=== PATIENT | female | born 1995 | race Caucasian/White ===

== ENCOUNTER 2018-11-06 12:41 | Emergency (ER) | payer OTHER ==
[2018-11-06] MEDS ORDERED: PROPARACAINE 0.5% OPHTH DROPS 15 ML BTL BOTH EYES STA (13:36)
[2018-11-06] MEDS ORDERED: PROPARACAINE 0.5% OPHTH DROPS 15 ML BTL RIGHT EYE STA (13:36)
[2018-11-06] MEDS ORDERED: ATROPINE OPHTH SOLN 1% 5ML BTL RIGHT EYE STA (13:53)
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
[2018-11-06] MEDS ORDERED: SODIUM CHLORIDE 0.9% 1,000 ML IV ONE (14:22)
[2018-11-06] MEDS ORDERED: LEVOFLOXACIN 750MG-D5W PMX 750 MG in DEXTROSE/WATER 1 150ML.BAG IVPB STA (14:51)
[2018-11-06 14:54] VITALS: RESP 18
[2018-11-06 14:54] LABS: Basophils % (A) 0 %; Eosinophils % (A) 0 %; HCT 37.2 % (34.0-46.0); HGB 12.3 gm/dL (11.4-16.0); Lymphocytes % (A) 14 %; MCH 28.6 pg (25.0-35.0); MCHC 33.1 g/dL (31.0-37.0); MCV 86.2 fL (80.0-100.0); Mean Platelet Volume 6.9; Monocytes # (A) 0.6 k/uL (0-1.0); Monocytes % (A) 4 %; Neutrophils # (A) 11.2 k/uL (1.3-7.7); Neutrophils % (A) 80 %; Platelet Count 262 k/uL (150-450); RBC 4.32 m/uL (3.80-5.40); RDW 12.6 % (11.5-15.5)
[2018-11-06 15:03] LABS: ALT 23 U/L (9-52); AST 24 U/L (14-36); Albumin 4.3 g/dL (3.5-5.0); Alkaline Phosphatase 64 U/L (38-126); Anion Gap 10 mmol/L; Blood Urea Nitrogen 14 mg/dL (7-17); Carbon Dioxide 20 mmol/L (22-30); Chloride 109 mmol/L (98-107); Glucose 99 mg/dL (74-99); Potassium 4.3 mmol/L (3.5-5.1); Sodium 139 mmol/L (137-145); Total Bilirubin 0.5 mg/dL (0.2-1.3); Total Protein 7.2 g/dL (6.3-8.2)
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
[2018-11-06] MEDS ORDERED: DIPH,PERTUS(ACELL)TETVAC-LF 0.5 ML VIAL IM ONE (15:04)
[2018-11-06 15:26] LABS: INR 0.9 (<1.2); Partial Thromboplastin Time 25.5 sec (22.0-30.0); Prothrombin Time 10.1 sec (9.0-12.0)
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
[2018-11-06 15:44] VITALS: BP 115/76; PULSE 91; TEMP 98.3
== END 2018-11-06 16:17 ==
LOC: EC 12:41
DX: S05.31XA Ocular laceration without prolapse or loss of intraocular tissue, right eye, initial encounter (principal); T15.81XA Foreign body in other and multiple parts of external eye, right eye, initial encounter; H21.01 Hyphema, right eye; Z53.8 Procedure and treatment not carried out for other reasons; Z23 Encounter for immunization; Z79.3 Long term (current) use of hormonal contraceptives; Z79.899 Other long term (current) drug therapy; Z88.1 Allergy status to other antibiotic agents; Z88.2 Allergy status to sulfonamides; V89.2XXA Person injured in unspecified motor-vehicle accident, traffic, initial encounter; Y92.410 Unspecified street and highway as the place of occurrence of the external cause
CPT/HCPCS: 99285; 96365; 90471; 36415; 80053; 85025; 85610; 85730; 70486; 70450; 90715; J1956